=== PATIENT | male | born 1965 | race Caucasian/White ===

== ENCOUNTER 2023-03-09 16:45 | Outpatient (RCR) | payer BC, SELFPAY | END 2023-05-30 16:08 | disposition home or self-care (01) | PROVIDERS: PCP Student in an Organized Health Care Education/Training Program; Visit Provider Student in an Organized Health Care Education/Training Program | DX: S39.012A Strain of muscle, fascia and tendon of lower back, initial encounter (principal); M54.42 Lumbago with sciatica, left side; Z51.89 Encounter for other specified aftercare | CPT/HCPCS: 97012; 97110; 97161 ==

== ENCOUNTER 2025-05-23 20:54 | Emergency (ER) | payer BC, SELFPAY ==
--- OUTSIDE RECORDS SUMMARY | 2025-05-23 20:56 | XMS_ITS | Clinical Summary ---
Author Organization [facility] Address [address] [place] [id number] Care Team Providers Care Junior Php Developer Name Role Phone Isma Monge MD Primary Care Provider [phone] Allergies Active Allergy Reactions Criticality Noted Date Comments Venom-Honey Bee Edema 10/04/2016 Penicillins Rash 02/03/2016 Medications atorvastatin 40 mg tabletIndications: Hyperlipidemia, unspecified hyperlipidemia type Take 1 Tablet (40 mg) by mouth once daily. 90 Tablet 3 5 Active hydroCHLOROthiazid e 25 mg tabletIndications: HTN (hypertension) Take 1 Tablet (25 mg) by mouth once daily. 90 Tablet 3 5 Active losartan 100 mg tabletIndications: HTN (hypertension) Take 1 Tablet (100 mg) by mouth once daily. 90 Tablet 3 5 Active durable medical equipment (DME)Indications:C hronic heel pain, right,Gastrocnemiu s equinus, bilateral [id number] Plantar Fasciitis Night Splint, Large 1 Each 5 Active Active Problems Problem Noted Date Diagnosed Date Colon polyp 05/08/2019 Overview (05/08/2019): Colonoscopy 04/2019 polyp, repeat in 5 year, PEG 4-8L HTN (hypertension) 02/03/2016 Hyperlipidemia 02/03/2016 Gastroesophageal reflux disease without esophagi tis 02/03/2016 Encounters Date Type Department Care Team Description 03/20/2025 8:00 AM CDT Office Visit [facility] [address] [place] [address] Zach Alonso R, DPM Consult (Right Heel Pain) 03/19/2025 Travel from Last 3 Months Immunizations Immunization Administration Dates Next Due COVID-19 VACCINE SPIKEVAX (M ODERNA 50MCG/0.5ML) 12YO+ PFS 12/12/2023 COVID-19 vaccine (Pfizer-BioNTech 30mcg/0.3mL) P F, MDV 09/15/2021 Influenza, IIV4 10/11/2022 Td (Age >=7 Years) 07/08/2020 Tdap 10/24/2009 Zoster (Shingrix-RZV, recombinant) 06/04/2022, Family History Medical History Relation Name Comments Heart Disease Father Heart failure Father Hypertension Father Skin cancer Father Gallbladder disease Mother Hypertension Mother Diabetes Sister Relation Name Status Comments Father Mother Sister Social History Tobacco Use Types Packs/Day Years Used Date Smoking Tobacco: Never Smokeless Tobacco: Never Tobacco Cessation:Counseling Given: No Alcohol Use Standard Drinks/Week Comments Yes 2 (1 standard drink = 0.6 oz pur e alcohol) occasional PHQ-2 Answer Date Recorded PHQ-2 TOTAL SCORE 0 01/29/2025 Social Connections Answer Date Recorded Do you often feel lonely or isolated from those around you? 0 07/09/2024 Financial Resource Strain Answer Date R ecorded Difficulty of Paying Living Expenses 3 07/09/2024 Difficulty of Paying Living Expenses Not on file 07/09/2024 Food Insecurity Answer Date Recorded Do you worry your food will run out before you are able to buy more? 1 07/09/2024 Transportation Needs Answer Date Record ed Does lack of transportation keep you from medica l appointments? 1 07/09/2024 Does lack of transportation keep you from work, meetings or getting things that you need? 1 07/09/2024 Housing Stability Answer Date Recorded What is your housing situation today? 1 07/09/2024 Utilities Answer Date Recorded Do you have trouble paying f or utilities (for example, heat, electricity, water, phone)? 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 file Not on file Not on file Obstetrics History Last Filed Vital Signs Vital Sign Reading Time Taken Comments Blood Pressure 134/83 03/20/2025 7:57 AM CDT Pulse 72 03/20/2025 7:57 AM CDT Temperature 36.7 C (98 F) 07/08/2020 7:55 AM CDT Respiratory Rate - - Oxygen Saturation 98% 03/20/2025 7:57 AM CDT Inhaled Oxygen Concentration - - Weight 125.1 kg (275 lb 14.4 oz) 03/20/2025 7:57 AM CDT Height 190.1 cm (6' 2.84) 03/20/2025 7:57 AM CD T Body Mass Index 34.63 03/20/2025 7:57 AM CDT Plan of Treatment Health Maintenance Due Date Last Done Comments Pneumococcal series for age 50+ (1 of 1 - PCV) 2015 Colonoscopy through age 75 05/04/202405/04, 05/04/2019, 05/04/2019 COVID-19 vaccine series ( season) 2024 12/12/2023, 10/11/2022, 09/15/2021, Additional history exists RSV vaccine for adults or (1 - Risk 60-74 years 1-dose series) 2025 Influenza Vaccine (#1) 2025 10/11/2022 Depression screening for age 12+ 01/29/2026 01/29/2025, 12/12/2023, 09/15/2021, Additional history exists BMI (ht and wt on same day) for age 18+ 03/20/2026 03/20/2025, 01/29/2025, 12/12/2023, Additional history exists Lipids for age 45-75 01/29/2030 01/29/2025, 12/12/2023, 11/08/2022, Additional history exists Tetanus booster 07/08/2030 07/08/2020, 10/24/2009 Hepatitis C screening for age 18-79 Completed 03/09/2019 Zoster (shingles) series for age 50+ Completed 06/04/2022, 09/15/2021 HIV for age 15-65 Completed 11/08/2022 Hepatitis B series for 19+ Aged Out N o longer eligible based on patient's age to complete this topic Procedures Procedure Name Priority Date/Time Associated Diagnosis Comments LIPID PANEL Routine 01/29/2025 2:52 PM CDT Hyperlipidemia, unspecified hyperlipidemia type LC HIV-1/O/2, 4TH GENERATION Routine 11/08/2022 9:45 AM DIRECTOR OF EXHIBITS Screening for HIV (human immunodeficiency virus) COLONOSCOPY SCREENING Routine 05/04/2019 9:53 AM CDT Screen for colon cancer ANTI HCV Routine 03/09/2019 12:03 PM CDT Need for hepatitis C screening test from Last 3 Months or Most Recently Relevant to Health Maintenance Results * (ABNORMAL) LIPID PANEL (01/29/2025 2:52 PM CDT) CHOLESTEROL, TOTAL 133 <200 mg/dL [facility] HDL CHOLESTEROL 37(L) > OR = 40 mg/dL [facility] TRIGLYCERIDES 64 <150 mg/dL [facility] LDL-CHOLESTEROL 82 mg/dL (calc) [facility] Comment: Reference range: <100 Desirable range <100 mg/dL for primary prevention; <70 mg/dL for patients with CHD or diabetic patients with > or = 2 CHD risk factors. LDL-C is now calculated using the Jorge-Mackay calculation, which is a validated novel method providing better accuracy than the Friedewald equation in the estimation of LDL-C. Jorge SS et al. BALDEMAR. 2013;310(19): 1485-2680 (http://education.Sentiment.Capsule.fm/faq/NYI870) CHOL/HDLC RATIO 3.6 <5.0 (calc) [facility] NON HDL CHOLESTEROL 96 <130 mg/dL (calc) [facility] Comment: For patients with diabetes plus 1 major ASCVD risk factor, treating to a non-HDL-C goal of <100 mg/dL (LDL-C of <70 mg/dL) is considered a therapeutic option. Blood BLOOD SPECIMEN / Unknown 01/29/2025 2:52 PM CDT 01/29/2025 2:52 PM CDT Isma Monge MD CHEMISTRY Final Resu lt [facility] [address] [place] [address], [place] [phone] [facility] [address] [place] [address] * LC HIV-1/O/2, 4TH GENERATION (11/08/2022 9:45 AM DIRECTOR OF EXHIBITS) Pathologist [facility] HIV Scr 4th Gen Non Reactive Non Reactive 11/10/2022 7:35 AM DIRECTOR OF EXHIBITS [facility] ([facility]) Comment: HIV Negative HIV-1/HIV-2 antibodies and HIV-1 p24 antigen were NOT detected. There is no laboratory evidence of HIV infection. Blood BLOOD SPECIMEN / Unknown Venipuncture / Unknown 11/08/2022 9:45 AM DIRECTOR OF EXHIBITS 11/08/2022 9:45 AM DIRECTOR OF EXHIBITS Narrative FOR [facility] ([facility]) - 11/10/2022 7:35 AM DIRECTOR OF EXHIBITS Performed at: [address] [place] [address] [id number] Community Service Technician: Wilmer Godwin MD, Phone: [phone] Isma Monge MD LABORATORY Final Resu lt [facility] ([facility]) [address] [place] [address] * COLONOSCOPY SCREENING (05/04/2019 9:53 AM CDT) Isma Monge MD GI PROCEDURE ORD Final Res ult * ANTI HCV [50316.2] (03/09/2019 12:03 PM CDT) HEPATITIS C ANTIBODY Non-React jairo Non-React jairo 03/09/2019 5:20 PM CDT [facility] Comment:Antibodies to HCV no t detected; does not exclude the possibility of exposure to HCV. Blood BLOOD SPECIMEN / Unknown Venipuncture / Unknown 03/09/2019 12:03 PM CDT 03/09/2019 12:06 PM CDT Isma Monge MD SEND OUTS Final Resu lt [facility] [address] [place] [address], [place] from Last 3 Months or Most Recently Relevant to Health Maintenance Insurance [facility] NON-PA-ITS Care Teams Junior Php Developer Relationship Specialty Start Date End Date Isma Monge MD [address] [place] [address] PCP - General Family Practice 04/21/20
--- OUTSIDE RECORDS SUMMARY | 2025-05-23 20:56 | XMS_ITS | Clinical Summary ---
Author Organization [facility] Address [address] [place] [address] Care Team Providers Care Annealing Torch Operator Name Role Phone Unassigned, Provider Primary Care Provider Unava ilable Source Comments You are receiving this document as you are listed as the primary care provider,follow-up provider, or the patient has been referred to you for consultation.This is in compliance with the Medicare and[facility] EHR Incentive Program,which states Providers who transition their patient to another setting of careor provider of care or refers their patient to another provider of care shouldprovide summary care record for each transition of care or referral. 640 Labs Allergies Active Allergy Reactions Criticality Noted Date Comments Bee Venom Other, see comments 02/04/2022 Penicillins Rash 02/04/2022 Medications atorvastatin (LIPITOR) 40 MG tablet Take 40 mg by mouth daily at bedtime. 12/12/2021 Active hydroCHLOROthiaz timothy (ORETIC) 25 MG tablet Take 25 mg by mouth daily. 12/11/2021 Active losartan (COZAAR) 100 MG tablet Take 100 mg by mouth daily. 12/18/2021 Active omeprazole (PRILOSEC) 20 MG capsule Active Social History Tobacco Use Types Packs/Day Years Used Date Smoking Tobacco: Never Assessed Sex and Gender Information Value Date Recorded Sex Assigned at Not on file Legal Sex Male 3:52 AM CDT Gender Identity Not on file Sexual Orientation Not on file Plan of Treatment Health Maintenance Due Date Last Done Comments Colon Cancer Screening Plan Due 1965 Hep C Screening (Preventive Services) 1965 PSA Screening Discussion 1965 HIV Screening (Preventive Services) 1981 Adult Preventive Visit 1983 Cholesterol 2000 Pneumococcal Vaccine 50+ Yrs (1 of 1 - PCV) 2015 Zoster/Shingles Vaccine (2 o f 2) 11/10/2021 09/15/2021 COVID-19 Vaccine (4 - 2023-2 5 season) 2024 09/15/2021, 02/28/2021, 02/07/2021 Influenza Vaccine (#1) 2025 DTaP/Tdap/Td Vaccine (3 - Tdap) 07/08/2030 07/08/2020, 10/24/2009 RSV Vaccine (1 - 1-dose 75+ series) 2040 HepA Vaccine Aged Out No longer eligi ble based on patient's age to complete this topic HepB Vaccine Aged Out No longer eligi ble based on patient's age to complete this topic Hib Vaccine Aged Out No longer eligi ble based on patient's age to complete this topic IPV (Polio) Vaccine Aged Out No longe r eligible based on patient's age to complete this topic MCV4 Vaccine Aged Out No longer eligi ble based on patient's age to complete this topic Meningococcal B Vaccine Aged Out No l onger eligible based on patient's age to complete this topic Insurance BCBS OUT OF STATE [id number] [place] [id number] Care Teams Annealing Torch Operator Relationship Specialty Start Date End Date Unassigned, Provider [address] [place] [address] PCP - General 12/24/00
[2025-05-23 21:03] VITALS: BP 149/105; PULSE 99; RESP 20; TEMP 36.8; O2SAT 99; BMI 32.5
--- NOTE | 2025-05-23 21:13 | CRLHL7_ITS ---
For Patients: As a result of the Century Cures Act, medical imaging exams and procedure reports are released immediately into your electronic medical record. You may view this report before your referring provider. If you have questions, please contact your health care provider. INDICATION: Right upper quadrant and gastric abdominal pain. TECHNIQUE: CT abdomen and pelvis acquired with 128 cc Isovue 370 IV contrast. COMPARISON: None. FINDINGS: Lower chest: Mild subsegmental atelectasis. Liver: Mild periportal edema, possibly related to patient hydration status. Normal in size and attenuation. No suspicious masses. Gallbladder and bile ducts: Cholelithiasis, but no definite gallbladder inflammatory changes. No biliary dilatation. Pancreas: Unremarkable. No mass or inflammation. Spleen: Splenules. Normal in size. No masses. Adrenal glands: Unremarkable. No nodules. Kidneys: Left renal cyst. No suspicious masses, stones, or hydronephrosis. GI tract: Unremarkable. Normal in caliber. No sign of mass or inflammation. No secondary signs of appendicitis. Vasculature: Mild atherosclerotic calcifications. Abdominal aorta is normal in caliber. Mesenteric arteries are patent. Lymph nodes: No pathologic lymphadenopathy. Peritoneum/Abdominal Wall: Unremarkable. No sign of mass or infiltration. No free air or significant free fluid. Pelvis: Bladder is unremarkable. Prostate is unremarkable. Bones: No acute lesions. Left-sided L5 pars defect. IMPRESSION: No acute findings to explain the patient`s symptoms. Cholelithiasis, but no definite gallbladder inflammatory changes. Please note that all CT scans at this facility use dose modulation, iterative reconstruction, and/or weight-based dosing when appropriate to reduce radiation dose to as low as reasonably achievable. Dictated by Darrin Kendall MD @ 05/23/2025 11:45:00 PM (Electronically Signed)
--- NOTE | 2025-05-23 21:13 | ED.ABDPAIN ---
HPI - Abdominal Pain General Date Seen: 05/23/25 <Aretha Humphrey MD - Last Filed: 05/23/25 22:09> Chief Complaint: Abdominal Pain <Aretha Humphrey MD - Last Filed: 05/23/25 22:09> Stated Complaint: Gallbladder issues <Aretha Humphrey MD - Last Filed: 05/23/25 22:09> Time Seen by Provider: 05/23/25 21:00 <Aretha Humphrye MD - Last Filed: 05/23/25 22:09> Source: patient, family and RN notes reviewed <Aretha Humphrey MD - Last Filed: 05/23/25 22:09> Mode of arrival: ambulatory <Aretha Humphrey MD - Last Filed: 05/23/25 22:09> Limitations: no limitations <Aretha Humphrey MD - Last Filed: 05/23/25 22:09> History of Present Illness HPI narrative: Ranjit is a very pleasant 60-year-old male with a history of hypertension, hyperlipidemia as well as known gallbladder issues diagnosed in 2020 who comes to the emergency room with increasing abdominal pain this evening. Ranjit notes that he diagnosed with gallbladder issues in 2020 but decided to handle it with change in his diet. He does tell the nursing staff he has noticed some discomfort over the last 2 weeks tonight he had pain develop prior to working out but after working out and eating it is much worse. He shows this to be in the gastric area. He is not had any vomiting. He has not had any diarrhea or constipation. Does not think that he is bloated her feels that his belly is bigger than it should be. He also has a past history of an appendectomy. No fever or chills. He is rating the pain a 9/10. He is preferring to stay still has a seems to be worse with movement. He has not taken anything for pain. <Aretha Humphrey MD - Last Filed: 05/23/25 22:09> Related Data Home Medications: Home Medications ?Medication ?Instructions ?Recorded ?Confirmed atorvastatin 40 mg tablet 40 mg PO DAILY 05/23/25 05/23/25 hydrochlorothiazide 25 mg tablet 25 mg PO DAILY 05/23/25 05/23/25 losartan 100 mg tablet 100 mg PO DAILY 05/23/25 05/23/25 <Aretha Humphrey MD - Last Filed: 05/23/25 22:09> Allergies/Adverse Reactions: Allergies Allergy/AdvReac Type Severity Reaction Status Date / Time Penicillins Allergy Verified 05/23/25 22:49 <Aretha Humphrey MD - Last Filed: 05/23/25 22:09> Review of Systems Status of ROS Reports: 10 or more systems reviewed and unremarkable except as noted in History and below <Aretha Humphrey MD - Last Filed: 05/23/25 22:09> Const Denies: fever, chills or fatigue <Aretha Humphrey MD - Last Filed: 05/23/25 22:09> ENMT Denies: nasal congestion <Aretha Humphrey MD - Last Filed: 05/23/25 22:09> Cardio Denies: chest pain, swelling of feet/ankles or shortness of breath with exertion <Aretha Humphrey MD - Last Filed: 05/23/25 22:09> Resp Denies: shortness of breath or cough <Aretha Humphrey MD - Last Filed: 05/23/25 22:09> GI Reports: abdominal pain and nausea; Denies: vomiting, diarrhea or constipation <Aretha Humphrey MD - Last Filed: 05/23/25 22:09> Denies: painful urination <Aretha Humphrey MD - Last Filed: 05/23/25 22:09> Endo Denies: fatigue <Aretha Humphrey MD - Last Filed: 05/23/25 22:09> [facility] Social History: Social History Smoking Status: Never smoker Do you use any of these nicotine containing products: None Second hand tobacco smoke exposure: No How often do you have a drink containing alcohol: monthly or less How often do you have six or more drinks on one occasion: Never AUDIT-C Alcohol total score: 1 Non-prescribed substance use: denies use service: No <Aretha Humphrey MD - Last Filed: 05/23/25 22:09> Exam Narrative: Exam Narrative: Patient is alert and oriented and nontoxic in appearance. He is however in discomfort. External ears eyes nose clear. Heart with regular rate and rhythm and lungs are clear. Abdomen shows tenderness in the epigastrium and right upper quadrant positive Womack sign. No significant tenderness in the lower aspect of the abdomen. Bowel sounds are present. Lower extremities without edema. He is diaphoretic. No pulsating mass. <Aretha Humphrey MD - Last Filed: 05/23/25 22:09> Const: Vital Signs, click to edit/add: Vital Signs - 24 hr 05/23/25 21:03 05/23/25 22:56 05/23/25 23:45 Temperature 98.3 F 97.5 F L Pulse Rate [Pulse Oximeter] 99 62 61 Respiratory Rate 20 16 16 Blood Pressure [Le ft Upper Arm] 149/105 H 130/70 129/68 Pulse Oximetry 99 98 100 Oxygen Delivery Me thod Room Air Room Air Room Air <Aretha Humphrey MD - Last Filed: 05/23/25 22:09> Vital Signs, click to edit/add: Vital Signs - 24 hr 05/23/25 21:03 05/23/25 22:56 05/23/25 23:45 Temperature 98.3 F 97.5 F L Pulse Rate [Pulse Oximeter] 99 62 61 Respiratory Rate 20 16 16 Blood Pressure [Le ft Upper Arm] 149/105 H 130/70 129/68 Pulse Oximetry 99 98 100 Oxygen Delivery Me thod Room Air Room Air Room Air <Maura Koroma MD - Last Filed: 05/23/25 23:55> Documenting provider has reviewed patient's vital signs: yes <Aretha Humphrey MD - Last Filed: 05/23/25 22:09> Course Course ED Course: Differential diagnosis includes but is not limited to biliary colic, small-bowel obstruction, internal hernia, aortic dissection. At this time patient will have IV placed, Toradol 15 mg IV morphine 4 mg IV Zofran 4 mg IV and 1 L normal saline given. Have asked for a CT of the abdomen and pelvis with IV contrast. Have ordered CBC, comprehensive panel, urinalysis, lactate, lipase, CRP. <Aretha Humphrey MD - Last Filed: 05/23/25 22:09> Differential diagnosis includes but is not limited to biliary colic, small-bowel obstruction, internal hernia, aortic dissection. At this time patient will have IV placed, Toradol 15 mg IV morphine 4 mg IV Zofran 4 mg IV and 1 L normal saline given. Have asked for a CT of the abdomen and pelvis with IV contrast. Have ordered CBC, comprehensive panel, urinalysis, lactate, lipase, CRP. <Maura Koroma MD - Last Filed: 05/23/25 23:55> Reevaluation(s) Reevaluation #1: Patient noted to have a mildly elevated white count, lactate 2.1. Currently awaiting urinalysis and comprehensive panel. <Aretha Humphrey MD - Last Filed: 05/23/25 22:09> Reevaluation #2: The rest of his blood work was unremarkable. He was feeling much better after treatment. His abdominal CT scan showed cholelithiasis, no evidence of gallbladder inflammation. We discussed discharge home with follow-up in the surgical clinic. Patient was in agreement with this. We discussed returning to the ER if he develops fever, vomiting or pain that cannot be tolerated or controlled. <Maura Koroma MD - Last Filed: 05/23/25 23:55> Vital Signs Vital signs: Initial Vital Signs Temperature 98.3 F 05/23/25 21:03 Temperature Source Temporal Artery Scan 05/23/25 21:03 Pulse Rate 99 05/23/25 21:03 Pulse Rhythm Regular 05/23/25 21:03 Respiratory Rate 20 05/23/25 21:03 Blood Pressure 149/105 H 05/23/25 21:03 Blood Pressure Mean 119 H 05/23/25 21:03 Blood Pressure Position Supine 05/23/25 21:03 Pulse Oximetry 99 05/23/25 21:03 Oxygen Delivery Method Room Air 05/23/25 21:03 Vital Signs Temperature 98.3 F 05/23/25 21:03 Pulse Rate 99 05/23/25 21:03 Respiratory Rate 20 05/23/25 21:03 Blood Pressure 149/105 H 05/23/25 21:03 Pulse Oximetry 99 05/23/25 21:03 Oxygen Delivery Method Room Air 05/23/25 21:03 Temperature 97.5 F L 05/23/25 22:56 Pulse Rate 61 05/23/25 23:45 Respiratory Rate 16 05/23/25 23:45 Blood Pressure 129/68 05/23/25 23:45 Pulse Oximetry 100 05/23/25 23:45 Oxygen Delivery Method Room Air 05/23/25 23:45 <Aretha Humphrey MD - Last Filed: 05/23/25 22:09> Initial Vital Signs Temperature 98.3 F 05/23/25 21:03 Temperature Source Temporal Artery Scan 05/23/25 21:03 Pulse Rate 99 05/23/25 21:03 Pulse Rhythm Regular 05/23/25 21:03 Respiratory Rate 20 05/23/25 21:03 Blood Pressure 149/105 H 05/23/25 21:03 Blood Pressure Mean 119 H 05/23/25 21:03 Blood Pressure Position Supine 05/23/25 21:03 Pulse Oximetry 99 05/23/25 21:03 Oxygen Delivery Method Room Air 05/23/25 21:03 Vital Signs Temperature 98.3 F 05/23/25 21:03 Pulse Rate 99 05/23/25 21:03 Respiratory Rate 20 05/23/25 21:03 Blood Pressure 149/105 H 05/23/25 21:03 Pulse Oximetry 99 05/23/25 21:03 Oxygen Delivery Method Room Air 05/23/25 21:03 Temperature 97.5 F L 05/23/25 22:56 Pulse Rate 61 05/23/25 23:45 Respiratory Rate 16 05/23/25 23:45 Blood Pressure 129/68 05/23/25 23:45 Pulse Oximetry 100 05/23/25 23:45 Oxygen Delivery Method Room Air 05/23/25 23:45 <Maura Koroma MD - Last Filed: 05/23/25 23:55> Medications Administered Medications: Discontinued Medications Generic Name Dose Route Start Last Admin Trade Name Adis PRN Reason Stop Dose Admin Sodium Chloride 1,000 mls @ 1,000 mls/hr 05/23/25 21:14 05/23/25 22:34 0.9 % Sodium Chloride 1000 Ml IV 05/23/25 22:13 Infused .Q1H PIA Infusion Ketorolac Tromethamine 15 mg 05/23/25 21:13 05/23/25 21:21 Ketorolac 15 Mg/Ml Inj IVP 05/23/25 21:14 15 mg ONCE ONE Administration Morphine Sulfate 4 mg 05/23/25 21:13 05/23/25 21:21 Morphine 4 Mg/Ml Inj IVP 05/23/25 21:14 4 mg ONCE ONE Administration Ondansetron HCl 4 mg 05/23/25 21:13 05/23/25 21:20 Ondansetron 2 Mg/Ml Inj IVP 05/23/25 21:14 4 mg ONCE ONE Administration <Aretha Humphrey MD - Last Filed: 05/23/25 22:09> Discontinued Medications Generic Name Dose Route Start Last Admin Trade Name Adis PRN Reason Stop Dose Admin Sodium Chloride 1,000 mls @ 1,000 mls/hr 05/23/25 21:14 05/23/25 22:34 0.9 % Sodium Chloride 1000 Ml IV 05/23/25 22:13 Infused .Q1H PIA Infusion Ketorolac Tromethamine 15 mg 05/23/25 21:13 05/23/25 21:21 Ketorolac 15 Mg/Ml Inj IVP 05/23/25 21:14 15 mg ONCE ONE Administration Morphine Sulfate 4 mg 05/23/25 21:13 05/23/25 21:21 Morphine 4 Mg/Ml Inj IVP 05/23/25 21:14 4 mg ONCE ONE Administration Ondansetron HCl 4 mg 05/23/25 21:13 05/23/25 21:20 Ondansetron 2 Mg/Ml Inj IVP 05/23/25 21:14 4 mg ONCE ONE Administration <Maura Koroma MD - Last Filed: 05/23/25 23:55> MDM - Abdominal Pain MDM Narrative Medical decision making narrative: 1. Abdominal pain-suspect biliary colic. Currently awaiting creatinine so that they were able to proceed with CT. 2. Disposition -as patient was signed out to my partner Dr. Koroma for review of laboratory values and CT results <Aretha Humphrey MD - Last Filed: 05/23/25 22:09> Lab Data Attestation: I reviewed the patient's lab results. <Aretha Humphrey MD - Last Filed: 05/23/25 22:09> Labs: Lab Results 05/23/25 Range/Units 21:10 WBC 13.63 H (4.50-11.00) K/uL RBC 4.38 (4.30-5.90) m/uL Hgb 13.0 L (13.5-17.5) gm/dL Hct 39.5 (37.0-53.0) % MCV 90 (80-100) fL MCH 30 (26-34) pg MCHC 33 (32-36) gm/dL RDW Coeff of Stevan 13.3 (11.5-15.5) % Plt Count 318 (140-440) K/uL Neut % (Auto) 53.2 (42.0-72.0) % Lymph % (Auto) 35.8 (20-44) % [place] % (Auto) 8.3 (0.0-11.0) % Eos % (Auto) 2.1 (0.0-7.0) % Baso % (Auto) 0.4 (0.0-3.0) % Neut # (Auto) 7.30 H (1.7-7.0) K/uL Lymph # (Auto) 4.90 H (0.90-2.90) K/uL [place] # (Auto) 1.10 H (0.00-0.90) K/UL Eos # (Auto) 0.30 (0.00-0.50) K/uL Baso # (Auto) 0.10 (0.00-0.30) K/uL Abs Immat Gran (auto) 0.00 (0.00-0.30) K/uL Imm/Tot Granulo (auto) 0.2 % Sodium 137 (135-149) mmol/L Potassium 3.7 (3.6-5.1) mmol/L Chloride 103 (96-114) mmol/L Carbon Dioxide 27 (20-32) mmol/L Anion Gap 7 (7-15) mEq/L BUN 29 (7-30) mg/dL Creatinine 1.0 (0.5-1.5) mg/dL Estimated Creat Clear 93.89 Estimated GFR 86 ml/min Glucose 103 (60-115) mg/dL Lactate 2.1 H (0.5-1.9) mmol/L Calcium 9.8 (8.4-10.6) mg/dL Total Bilirubin 0.6 (0.1-1.5) mg/dL AST 30 (12-35) U/L ALT 22 (4-50) U/L Alkaline Phosphatase 78 (40-150) U/L C-Reactive Protein 0.9 (0.5-1.0) mg/dL Total Protein 8.0 (6.0-8.3) g/dL Albumin 4.5 (3.3-5.0) g/dL Lipase 89 (23-300) U/L Urine Color Yellow (Yellow) Urine Appearance Clear (Clear) Urine pH 8.5 (5.0-8.5) Ur Specific Igo 1.015 (1.000-1.030) Urine Protein Negative (Negative) Urine Glucose (UA) Negative (Negative) Urine Ketones Negative (Negative) Urine Blood Negative (Negative) Urine Nitrite Negative (Negative) Urine Bilirubin Negative (Negative) Urine Urobilinogen 0.2 (0.2-1.0) Ur Leukocyte Esterase Negative (Negative) Urine RBC 0-2 (0-2) Urine WBC 0-2 (0-5) Ur Squamous Epith Cells Few (None-Few) Urine Bacteria Few A (None) <Aretha Humphrey MD - Last Filed: 05/23/25 22:09> Lab Results 05/23/25 Range/Units 21:10 WBC 13.63 H (4.50-11.00) K/uL RBC 4.38 (4.30-5.90) m/uL Hgb 13.0 L (13.5-17.5) gm/dL Hct 39.5 (37.0-53.0) % MCV 90 (80-100) fL MCH 30 (26-34) pg MCHC 33 (32-36) gm/dL RDW Coeff of Stevan 13.3 (11.5-15.5) % Plt Count 318 (140-440) K/uL Neut % (Auto) 53.2 (42.0-72.0) % Lymph % (Auto) 35.8 (20-44) % [place] % (Auto) 8.3 (0.0-11.0) % Eos % (Auto) 2.1 (0.0-7.0) % Baso % (Auto) 0.4 (0.0-3.0) % Neut # (Auto) 7.30 H (1.7-7.0) K/uL Lymph # (Auto) 4.90 H (0.90-2.90) K/uL [place] # (Auto) 1.10 H (0.00-0.90) K/UL Eos # (Auto) 0.30 (0.00-0.50) K/uL Baso # (Auto) 0.10 (0.00-0.30) K/uL Abs Immat Gran (auto) 0.00 (0.00-0.30) K/uL Imm/Tot Granulo (auto) 0.2 % Sodium 137 (135-149) mmol/L Potassium 3.7 (3.6-5.1) mmol/L Chloride 103 (96-114) mmol/L Carbon Dioxide 27 (20-32) mmol/L Anion Gap 7 (7-15) mEq/L BUN 29 (7-30) mg/dL Creatinine 1.0 (0.5-1.5) mg/dL Estimated Creat Clear 93.89 Estimated GFR 86 ml/min Glucose 103 (60-115) mg/dL Lactate 2.1 H (0.5-1.9) mmol/L Calcium 9.8 (8.4-10.6) mg/dL Total Bilirubin 0.6 (0.1-1.5) mg/dL AST 30 (12-35) U/L ALT 22 (4-50) U/L Alkaline Phosphatase 78 (40-150) U/L C-Reactive Protein 0.9 (0.5-1.0) mg/dL Total Protein 8.0 (6.0-8.3) g/dL Albumin 4.5 (3.3-5.0) g/dL Lipase 89 (23-300) U/L Urine Color Yellow (Yellow) Urine Appearance Clear (Clear) Urine pH 8.5 (5.0-8.5) Ur Specific Igo 1.015 (1.000-1.030) Urine Protein Negative (Negative) Urine Glucose (UA) Negative (Negative) Urine Ketones Negative (Negative) Urine Blood Negative (Negative) Urine Nitrite Negative (Negative) Urine Bilirubin Negative (Negative) Urine Urobilinogen 0.2 (0.2-1.0) Ur Leukocyte Esterase Negative (Negative) Urine RBC 0-2 (0-2) Urine WBC 0-2 (0-5) Ur Squamous Epith Cells Few (None-Few) Urine Bacteria Few A (None) <Maura Koroma MD - Last Filed: 05/23/25 23:55> Imaging Data CT scan - abdomen: Attestation: I have reviewed the pertinent imaging results. <Aretha Humphrey MD - Last Filed: 05/23/25 22:09> Radiologist's impression: TECHNIQUE: CT abdomen and pelvis acquired with 128 cc Isovue 370 IV contrast. COMPARISON: None. FINDINGS: Lower chest: Mild subsegmental atelectasis. Liver: Mild periportal edema, possibly related to patient hydration status. Normal in size and attenuation. No suspicious masses. Gallbladder and bile ducts: Cholelithiasis, but no definite gallbladder inflammatory changes. No biliary dilatation. Pancreas: Unremarkable. No mass or inflammation. Spleen: Splenules. Normal in size. No masses. Adrenal glands: Unremarkable. No nodules. Kidneys: Left renal cyst. No suspicious masses, stones, or hydronephrosis. GI tract: Unremarkable. Normal in caliber. No sign of mass or inflammation. No secondary signs of appendicitis. Vasculature: Mild atherosclerotic calcifications. Abdominal aorta is normal in caliber. Mesenteric arteries are patent. Lymph nodes: No pathologic lymphadenopathy. Peritoneum/Abdominal Wall: Unremarkable. No sign of mass or infiltration. No free air or significant free fluid. Pelvis: Bladder is unremarkable. Prostate is unremarkable. Bones: No acute lesions. Left-sided L5 pars defect. IMPRESSION: No acute findings to explain the patient`s symptoms. Cholelithiasis, but no definite gallbladder inflammatory changes. <Maura Koroma MD - Last Filed: 05/23/25 23:55> Discharge Plan Discharge Clinical Impression: Cholelithiasis <Aretha Humphrey MD - Last Filed: 05/23/25 22:09> Patient Disposition: Home, Self-Care <Aretha Humphrey MD - Last Filed: 05/23/25 22:09> Condition: Stable <Aretha Humphrey MD - Last Filed: 05/23/25 22:09> Additional Instructions: You will be provided with the phone number to the surgical clinic. Recommend you call them 1st thing in the morning and request an ER follow-up visit for gallstones. In the meantime he will be sent home with both Toradol (stronger anti-inflammatory) and hydrocodone-acetaminophen. Hydrocodone-acetaminophen is in narcotic pain medication-this may cause constipation. Recommend daily MiraLax if you are taking this medication regularly for more than 2 days. This medication can also cause dizziness, do not operate any heavy machinery few taking his medication. Do not take acetaminophen/Tylenol in addition to this medication. <Aretha Humphrey MD - Last Filed: 05/23/25 22:09> Prescriptions: No Action atorvastatin 40 mg tablet 40 mg PO DAILY hydrochlorothiazide 25 mg tablet 25 mg PO DAILY losartan 100 mg tablet 100 mg PO DAILY <Aretha Humphrey MD - Last Filed: 05/23/25 22:09> Follow Up/Referrals: SUSY MCNEAL DO [Referring, Family Practice] <Aretha Humphrey MD - Last Filed: 05/23/25 22:09> Stand Alone Forms: MyHealth Info Instructions <Aretha Humphrey MD - Last Filed: 05/23/25 22:09>
[2025-05-23] MEDS: ONDANSETRON 2 MG/ML inj 4 MG IVP (21:20)
[2025-05-23] MEDS: MORPHINE 4 MG/ML INJ IVP (21:21)
[2025-05-23 21:43] LABS: Lactate* 2.1 mmol/L (0.5-1.9)
[2025-05-23 21:46] LABS: Hematocrit 39.5 % (37.0-53.0); Hemoglobin* 13.0 gm/dL (13.5-17.5); Immature Granulocytes Pct Auto 0.2 %; Mean Corpuscular HGB Conc 33 gm/dL (32-36); Mean Corpuscular Hemoglobin 30 pg (26-34); Mean Corpuscular Volume 90 fL (80-100); RDW Coefficient of Variation % 13.3 % (11.5-15.5); Red Blood Count 4.38 m/uL (4.30-5.90); White Blood Count* 13.63 K/uL (4.50-11.00)
[2025-05-23 21:52] LABS: Immature Granulocytes Abs Auto 0.00 K/uL (0.00-0.30); Lymphocytes Absolute Auto 4.90 K/uL (0.90-2.90); Slide Review Reflex No
[2025-05-23 21:59] LABS: Albumin* 4.5 g/dL (3.3-5.0); Chloride* 103 mmol/L (96-114); Sodium* 137 mmol/L (135-149)
[2025-05-23 22:00] LABS: Potassium* 3.7 mmol/L (3.6-5.1)
[2025-05-23 22:02] LABS: Alanine Aminotransferase* 22 U/L (4-50); Aspartate Amino Transferase* 30 U/L (12-35); Blood Urea Nitrogen* 29 mg/dL (7-30); Creatinine* 1.0 mg/dL (0.5-1.5); Est. Creatinine Clearance* 93.89; Estimated Glomerular Filt Rate 86 ml/min
[2025-05-23 22:03] LABS: Alkaline Phosphatase* 78 U/L (40-150); Anion Gap 7 mEq/L (7-15); Bilirubin Total* 0.6 mg/dL (0.1-1.5); Calcium* 9.8 mg/dL (8.4-10.6); Carbon Dioxide* 27 mmol/L (20-32); Glucose* 103 mg/dL (60-115); Total Protein* 8.0 g/dL (6.0-8.3)
[2025-05-23 22:56] VITALS: BP 130/70; PULSE 62; RESP 16; TEMP 36.4; O2SAT 98
[2025-05-23 23:20] LABS: Appearance Urine Clear (Clear)
[2025-05-23 23:45] VITALS: BP 129/68; PULSE 61; RESP 16; O2SAT 100
== END 2025-05-24 00:07 | disposition home or self-care (01) ==
PROVIDERS: Emergency Provider Family Medicine; PCP Surgery
DX: K80.20 Calculus of gallbladder without cholecystitis without obstruction (principal)
CPT/HCPCS: 36415; 74177; 80053; 81001; 83605; 83690; 85025; 86140; 87086; 96374; 96375; 99284; J1885; J2270; J2405; J7030; Q9967

== ENCOUNTER 2025-05-24 09:49 | Outpatient (CLI) | payer BC, SELFPAY ==
--- NOTE | 2025-05-24 10:00 | CRLHL7_ITS ---
For Patients: As a result of the Century Cures Act, medical imaging exams and procedure reports are released immediately into your electronic medical record. You may view this report before your referring provider. If you have questions, please contact your health care provider. INDICATION: RUQ PAIN, CHOLELITHIASIS COMPARISON: CT 05/23/2025 TECHNIQUE: Real time singh scale imaging and color Doppler analysis was performed of the gallbladder. FINDINGS: Echogenic stones within the gallbladder neck. Gallbladder wall is thickened measuring 7 millimeters. No pericholecystic fluid. Common bile duct measures 6 millimeters. Positive sonographic Womack`s sign. IMPRESSION: Gallstones in the gallbladder neck with positive sonographic Womack`s sign and gallbladder wall thickening suggesting cholecystitis. Surgical consultation recommended. Dictated by Darrin Murguia MD @ 05/24/2025 11:02:11 AM (Electronically Signed)
== END 2025-05-24 09:50 | disposition home or self-care (01) ==
LOC: US 09:49
PROVIDERS: PCP Surgery; Visit Provider Family Medicine
DX: R10.11 Right upper quadrant pain (principal); K80.20 Calculus of gallbladder without cholecystitis without obstruction
CPT/HCPCS: 76705

== ENCOUNTER 2025-05-27 01:34 | Day surgery (SDC) | payer BC, SELFPAY ==
[2025-05-27] VITALS (19 sets, daily range): BP systolic 110–146; BP diastolic 62–84; PULSE 45–63; RESP 10–18; TEMP 36.4–37.1; O2SAT 93–100; BMI 32.5
--- OUTSIDE RECORDS SUMMARY | 2025-05-27 01:35 | XMS_ITS | Clinical Summary ---
Author Organization [employer] [facility] [employer] [facility] Address [address] [place] [id number] Care Team Providers Care Tip Banding Machine Operator Name Role Phone Isma Monge MD Primary Care Provider [phone] Allergies Active Allergy Reactions Criticality Noted Date [...] hronic heel pain, right,Gastrocnemiu s equinus, bilateral [id number] Plantar Fasciitis Night Splint, Large 1 Each 5 Active Active Problems Problem Noted Date Diagnosed Date Colon polyp 05/08/2019 Overview (05/08/2019): Colonoscopy 04/2019 polyp, repeat in 5 year, PEG 4-8L HTN (hypertension) 02/03/2016 Hyperlipidemia 02/03/2016 Gastroesophageal reflux disease without esophagi tis 02/03/2016 Encounters Date Type Department Care Team Description 05/24/2025 Orders Only [facility] Scanner 1 scan: (1-Ord) [place], GALLBLADDER, 05/24/2025 05/23/2025 Orders Only [facility] Scanner 1 scan: (1-Ord) 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 Not on file Not [...] Procedure Name Priority Date/Time Associated Diagnosis Comments SCAN-ULTRASOUND REPORT 05/24/2025 12:00 AM CDT SCAN-CT INTERPRETATION 05/23/2025 12:00 AM CDT LIPID PANEL Routine 01/29/2025 2:52 PM CDT Hyperlipidemia, unspecified hyperlipidemia type LC HIV-1/O/2, 4TH GENERATION Routine 11/08/2022 9:45 AM PERSONAL VEHICLE ADVISOR Screening for HIV (human immunodeficiency virus) COLONOSCOPY SCREENING Routine 05/04/2019 9:53 AM CDT Screen for colon cancer ANTI HCV Routine 03/09/2019 12:03 PM CDT Need for hepatitis C screening test from Last 3 Months or Most Recently Relevant to Health Maintenance Results * SCAN-ULTRASOUND REPORT (05/24/2025 12:00 AM CDT) Anatomical Region Laterality Modality Other us Scanner OTHER Final Result * SCAN-CT INTERPRETATION (05/23/2025 12:00 AM CDT) Anatomical Region Laterality Modality Other us Scanner OTHER Final Result * (ABNORMAL) LIPID PANEL (01/29/2025 2:52 PM CDT) CHOLESTEROL, TOTAL 133 <200 mg/dL [facility] HDL CHOLESTEROL 37(L) > OR = 40 mg/dL [facility] TRIGLYCERIDES 64 <150 mg/dL [facility] LDL-CHOLESTEROL 82 mg/dL (calc) [facility] Comment: Reference range: <100 Desirable range <100 mg/dL for primary prevention; <70 mg/dL for patients with CHD or diabetic patients with > or = 2 CHD risk factors. LDL-C is now calculated using the Adan calculation, which is a validated novel method providing better accuracy than the Friedewald equation in the estimation of LDL-C. Jorge SANCHEZ et al. BALDEMAR. 2013;310(19): 2261-4454 (http://education.makeena/faq/NQR036) CHOL/HDLC RATIO 3.6 <5.0 (calc) [facility] NON HDL CHOLESTEROL 96 <130 mg/dL (calc) [facility] Comment: For patients with diabetes plus 1 major ASCVD risk factor, treating to a non-HDL-C goal of <100 mg/dL (LDL-C of <70 mg/dL) is considered a therapeutic option. Blood BLOOD SPECIMEN / Unknown 01/29/2025 2:52 PM CDT 01/29/2025 2:52 PM CDT Isma Monge MD CHEMISTRY Final Resu lt [facility] [address] [place] [address], [address] [address] * LC HIV-1/O/2, 4TH GENERATION (11/08/2022 9:45 AM PERSONAL VEHICLE ADVISOR) [facility] HIV Scr 4th Gen Non Reactive Non Reactive 11/10/2022 7:35 AM PERSONAL VEHICLE ADVISOR [facility] Comment: HIV Negative HIV-1/HIV-2 antibodies and HIV-1 p24 antigen were NOT detected. There is no laboratory evidence of HIV infection. Blood BLOOD SPECIMEN / Unknown Venipuncture / Unknown 11/08/2022 9:45 AM PERSONAL VEHICLE ADVISOR 11/08/2022 9:45 AM PERSONAL VEHICLE ADVISOR Narrative [facility] ([facility]) - 11/10/2022 7:35 AM PERSONAL VEHICLE ADVISOR Performed at: [address] [place], [place] [address], [place] [id number] Wrapper Layer And Examiner Soft Work: Wilmer Godwin MD, Phone: [phone] Isma Monge MD LABORATORY Final Resu lt [facility] ([facility]) [address] [place], [place] [id number], * COLONOSCOPY SCREENING (05/04/2019 9:53 AM CDT) Isma Monge MD GI PROCEDURE ORD Final Res ult * ANTI HCV [33421.2] (03/09/2019 12:03 PM CDT) HEPATITIS C ANTIBODY Non-React jairo Non-React jairo 03/09/2019 5:20 PM CDT [facility] [employer] [facility] Comment:Antibodies to HCV no t detected; does not exclude the possibility of exposure to HCV. Blood BLOOD SPECIMEN / Unknown Venipuncture / Unknown 03/09/2019 12:03 PM CDT 03/09/2019 12:06 PM CDT Isma Monge MD SEND OUTS Final Resu lt [facility] [address] [place] [address], from Last 3 Months or Most Recently Relevant to Health Maintenance Insurance [facility] Care Teams Tip Banding Machine Operator Relationship Specialty Start Date End Date Isma Monge MD [address] [place] [address] PCP - General Family Practice 04/21/20
--- OUTSIDE RECORDS SUMMARY | 2025-05-27 01:35 | XMS_ITS | Clinical Summary ---
Author Organization [facility] Address [address] [place] [address] Care Team Providers Care Senior C Software Developer Name Role Phone Unassigned, Provider Primary Care Provider Unava ilable Source Comments You are receiving this document as you are listed as the primary care provider,follow-up provider, or the patient has been referred to you for consultation.This is in compliance with the Medicare and[facility] Incentive Program,which states Providers who transition their patient to another setting of careor provider of care or refers their patient to another provider of care shouldprovide summary care record for each transition of care or referral. EyeEm Allergies Active Allergy Reactions Criticality Noted Date [...] this topic Insurance BCBS OUT OF STATE [id number] [facility] ELLIOT CASTILLO [id number] Care Teams Senior C Software Developer Relationship Specialty Start Date End Date Unassigned, Provider [address] [place] [address] PCP - General 12/24/00
[2025-05-27] MEDS: ONDANSETRON 2 MG/ML inj 4 MG IVP ×2 (01:59→04:34)
[2025-05-27] MEDS: LACTATED RINGERS 1000 ML 1,000 ML 500 ML IV (02:00)
[2025-05-27 02:13] LABS: Lactate Sepsis w/Reflex* 1.3 mmol/L (0.5-1.9)
[2025-05-27 02:14] LABS: Hematocrit 40.7 % (37.0-53.0); Hemoglobin* 13.4 gm/dL (13.5-17.5); Immature Granulocytes Pct Auto 0.2 %; Mean Corpuscular HGB Conc 33 gm/dL (32-36); Mean Corpuscular Hemoglobin 30 pg (26-34); Mean Corpuscular Volume 90 fL (80-100); RDW Coefficient of Variation % 13.2 % (11.5-15.5); Red Blood Count 4.51 m/uL (4.30-5.90); White Blood Count* 12.83 K/uL (4.50-11.00)
[2025-05-27 02:16] LABS: Immature Granulocytes Abs Auto 0.00 K/uL (0.00-0.30); Lymphocytes Absolute Auto 4.30 K/uL (0.90-2.90); Slide Review Reflex No
[2025-05-27 02:29] LABS: Albumin* 4.5 g/dL (3.3-5.0); Chloride* 105 mmol/L (96-114); Potassium* 3.4 mmol/L (3.6-5.1); Sodium* 139 mmol/L (135-149)
--- NOTE | 2025-05-27 02:31 | ED.GENADULT ---
HPI - General Adult General Chief complaint: Abdominal Pain Stated complaint: gall bladder pain Time Seen by Provider: 05/27/25 01:44 Source: patient Mode of arrival: ambulatory Limitations: no limitations History of Present Illness HPI narrative: 6-year-old male presents the emergency department for evaluation of right upper quadrant abdominal pain, worsening in nature. Had similar symptoms 3 nights ago, was evaluated in ED, entire note will reviewed. CT was reassuring, he was referred for ultrasound in the daylight hours when ultrasound was available, this was performed Tuesday. The results unfortunately have not been reviewed yet by the ordering provider, as that provider has not yet been back to work over the weekend. I do have the ability to review this and does show cholecystitis. Patient reports that he had no symptoms until tonight at around 10:30 a.m. which is about 3 hours prior to arrival. Now he has nausea, no vomiting. Bowel movements have been normal. Pain is in the right upper quadrant, radiating now to the back which is new and wider area from the epigastrium down to the right flank area for the pain which had previously been fairly focal. He has had an extensive history with gallstones since 2020. He had managed with diet and lifestyle changes for several years but symptoms have been worsening as of recently. No fever. Does have a prior history of an uncomplicated appendectomy in his early teens, no hernia surgery or other intra-abdominal procedures but has had a vasectomy. Tried taking his Toradol and hydromorphone that he was previously given without any significant improvement in symptoms. Past medical history notable for hypertension, hyperlipidemia. Home meds are atorvastatin, hydrochlorothiazide, losartan. Nonsmoker. ROS is notable for the GI symptoms as above, otherwise denies times 12 systems. Related Data Home Medications ?Medication ?Instructions ?Recorded ?Confirmed atorvastatin 40 mg tablet 40 mg PO DAILY 05/23/25 05/27/25 hydrochlorothiazide 25 mg tablet 25 mg PO DAILY 05/23/25 05/27/25 losartan 100 mg tablet 100 mg PO DAILY 05/23/25 05/27/25 Allergies Allergy/AdvReac Type Severity Reaction Status Date / Time Penicillins Allergy Mild Rash Verified 05/27/25 01:44 [facility] Social History Smoking Status: Never smoker Do you use any of these nicotine containing products: None Second hand tobacco smoke exposure: No How often do you have a drink containing alcohol: monthly or less How often do you have six or more drinks on one occasion: Never AUDIT-C Alcohol total score: 1 Non-prescribed substance use: denies use service: No Exam Const: Vital Signs, click to edit/add: Vital Signs - 24 hr 05/27/25 01:41 05/27/25 02:06 05/27/25 02:23 Temperature 98.5 F Pulse Rate 53 L Pulse Rate [Right Pulse Oximeter] 63 Respiratory Rate 18 18 Blood Pressure 146/73 H Blood Pressure [Le ft Upper Arm] 142/84 H Pulse Oximetry 99 100 99 Oxygen Delivery Me thod Room Air 05/27/25 02:32 Temperature Pulse Rate 49 L Pulse Rate [Right Pulse Oximeter] Respiratory Rate 18 Blood Pressure 139/80 Blood Pressure [Le ft Upper Arm] Pulse Oximetry 98 Oxygen Delivery Me thod Documenting provider has reviewed patient's vital signs: yes Common normals: no apparent distress General appearance: well kempt Other: Clammy. Friendly and cooperative. Appears well-nourished well-hydrated HENMT: Common normals: normocephalic, moist oral mucous membranes and oropharynx normal Head and scalp: normocephalic Face and sinus: normal facial exam Mouth: oral and palatal mucosa normal Eye: Common normals: conjunctivae normal General eye: normal appearance of both eyes Conjunctiva: conjunctiva(e) normal Neck & C-Spine: Common normals: no lymphadenopathy General: normal visual inspection Resp: Common normals: normal respiratory effort, no use of accessory muscles and clear to auscultation bilaterally Effort & inspection: able to speak in complete sentences Auscultation: clear to auscultation bilaterally Cardio: Common normals: regular rate, regular rhythm, S1 normal heart sound, S2 normal heart sound and no murmurs Rate: regular rate Rhythm: regular rhythm Heart sounds: S1 normal and S2 normal GI: Common normals: Normal to inspection, nondistended, normoactive bowel sounds present, no hepatosplenomegaly and no masses Palpation: no hepatosplenomegaly Other: Normoactive bowel sounds. Right upper quadrant is tender with positive Womack sign. Mild rebound tenderness as well. : Common normals: no CVA tenderness Bladder/kidney exam: no CVA tenderness Back & Pelvis: Common normals: no CVA tenderness and thoracic and lumbar spine normal to inspection Extremity: Common normals: normal capillary refill General: normal exam except as noted Neuro: Common normals: moves all extremities Speech: speech normal Psych: Appearance: well kempt Attitude: engaged Attention/concentration: attention grossly intact Memory/cognition: memory grossly intact Insight: insight good Judgement: judgment good Skin: Common normals: no rashes or lesions noted General skin exam: no rashes or lesions noted Course Course ED Course: 6-year-old male presenting with worsening right upper quadrant pain with known history of gallstones and recent ultrasound demonstrating cholecystitis, results have not yet been provided to the ordering provider. Counseled patient that he is most likely experiencing worsening of the cholecystitis. Will obtain basic labs including lactate, CBC, comprehensive metabolic panel, CRP. Will look for pancreatitis with lipase as he is now having pain radiating to the back a little bit as well. Will place peripheral IV, give 1 L of LR, 4 morphine, 0.5 mg of Dilaudid while we await labs. I do not think there is value in repeating the CT unless is lipase is really elevated. Will consult surgery team once lab results are available. Reevaluation(s) Time of Reevaluation #1: 03:02 Reevaluation #1: Counseled patient findings. Mild leukocytosis but otherwise labs are reassuring. No signs of pancreatitis, no biliary obstruction. I do not recommend that we repeat CT or ultrasound imaging tonight with these findings. I discussed with the surgeon on-call, she is on-call until 7:00 a.m. but is than leaving for vacation, she will contact the incoming surgeon. Zosyn was recommended, but I notice that he has a penicillin allergy, will give ertapenem instead. Patient has been accepted for admission by Dr. Dyer, hospitalist team. Vital Signs Vital signs: Initial Vital Signs Temperature 98.5 F 05/27/25 01:41 Temperature Source Temporal Artery Scan 05/27/25 01:41 Pulse Rate 63 05/27/25 01:41 Respiratory Rate 18 05/27/25 01:41 Blood Pressure 142/84 H 05/27/25 01:41 Blood Pressure Mean 103 05/27/25 01:41 Blood Pressure Position Sitting 05/27/25 01:41 Pulse Oximetry 99 05/27/25 01:41 Oxygen Delivery Method Room Air 05/27/25 01:41 Vital Signs Temperature 98.5 F 05/27/25 01:41 Pulse Rate 63 05/27/25 01:41 Respiratory Rate 18 05/27/25 01:41 Blood Pressure 142/84 H 05/27/25 01:41 Pulse Oximetry 99 05/27/25 01:41 Oxygen Delivery Method Room Air 05/27/25 01:41 Temperature 98.5 F 05/27/25 01:41 Pulse Rate 49 L 05/27/25 02:32 Respiratory Rate 18 05/27/25 02:32 Blood Pressure 139/80 05/27/25 02:32 Pulse Oximetry 98 05/27/25 02:32 Oxygen Delivery Method Room Air 05/27/25 01:41 Medications Administered Medications: Generic Name Dose Route Start Last Admin Trade Name Freq PRN Reason Stop Dose Admin Hydromorphone HCl 0.2 - 0.5 mg 05/27/25 01:57 05/27/25 02:45 Hydromorphone 0.5 Mg/0.5 Ml Inj IVP 0.5 mg Q1H PRN Administration Pain Hydroxyzine Pamoate 25 mg 05/27/25 03:02 05/27/25 03:05 Hydroxyzine Pamoate 25 Mg Capsule PO 05/27/25 03:03 25 mg ONCE ONE Administration Lactated Ringer's 1,000 mls @ 500 mls/hr 05/27/25 01:57 05/27/25 03:03 Lactated Ringers 1000 Ml IV 05/27/25 03:56 Infused .Q2H PIA Infusion Ertapenem 1 gm/ Sodium 100 mls @ 200 mls/hr 05/27/25 02:51 05/27/25 02:59 Chloride IVPB 05/27/25 02:52 200 mls/hr ONCE ONE Administration Discontinued Medications Generic Name Dose Route Start Last Admin Trade Name Freq PRN Reason Stop Dose Admin Hydromorphone HCl 0.5 mg 05/27/25 01:57 05/27/25 02:00 Hydromorphone 0.5 Mg/0.5 Ml Inj IVP 05/27/25 01:58 0.5 mg ONCE ONE Administration Ondansetron HCl 4 mg 05/27/25 01:57 05/27/25 01:59 Ondansetron 2 Mg/Ml Inj IVP 05/27/25 01:58 4 mg ONCE ONE Administration Medical Decision Making Lab Data Lab results reviewed: Yes I reviewed the patient's lab results Lab results narrative: Mild leukocytosis but no elevated lipase, elevated liver enzymes or signs of obstruction. Reassuring. Labs: Lab Results 05/27/25 Range/Units 02:10 WBC 12.83 H (4.50-11.00) K/uL RBC 4.51 (4.30-5.90) m/uL Hgb 13.4 L (13.5-17.5) gm/dL Hct 40.7 (37.0-53.0) % MCV 90 (80-100) fL MCH 30 (26-34) pg MCHC 33 (32-36) gm/dL RDW Coeff of Stevan 13.2 (11.5-15.5) % Plt Count 304 (140-440) K/uL Neut % (Auto) 52.9 (42.0-72.0) % Lymph % (Auto) 33.3 (20-44) % [place] % (Auto) 9.6 (0.0-11.0) % Eos % (Auto) 3.7 (0.0-7.0) % Baso % (Auto) 0.3 (0.0-3.0) % Neut # (Auto) 6.80 (1.7-7.0) K/uL Lymph # (Auto) 4.30 H (0.90-2.90) K/uL Y[place] # (Auto) 1.20 H (0.00-0.90) K/UL Eos # (Auto) 0.50 (0.00-0.50) K/uL Baso # (Auto) 0.00 (0.00-0.30) K/uL Abs Immat Gran (auto) 0.00 (0.00-0.30) K/uL Imm/Tot Granulo (auto) 0.2 % Sodium 139 (135-149) mmol/L Potassium 3.4 L (3.6-5.1) mmol/L Chloride 105 (96-114) mmol/L Carbon Dioxide 24 (20-32) mmol/L Anion Gap 10 (7-15) mEq/L BUN 30 (7-30) mg/dL Creatinine 1.0 (0.5-1.5) mg/dL Estimated Creat Clear 93.89 Estimated GFR 86 ml/min Glucose 117 H (60-115) mg/dL Lactate 1.3 (0.5-1.9) mmol/L Calcium 10.1 (8.4-10.6) mg/dL Total Bilirubin 0.5 (0.1-1.5) mg/dL AST 29 (12-35) U/L ALT 20 (4-50) U/L Alkaline Phosphatase 84 (40-150) U/L C-Reactive Protein 0.5 (0.5-1.0) mg/dL Total Protein 8.1 (6.0-8.3) g/dL Albumin 4.5 (3.3-5.0) g/dL Lipase 100 (23-300) U/L Imaging Data Right upper quadrant ultrasound: Attestation: I have reviewed the pertinent imaging results. Radiologist's impression: Note that ultrasound was taken 05/24, not today FINDINGS: Echogenic stones within the gallbladder neck. Gallbladder wall is thickened measuring 7 millimeters. No pericholecystic fluid. Common bile duct measures 6 millimeters. Positive sonographic Womack`s sign. IMPRESSION: Gallstones in the gallbladder neck with positive sonographic Womack`s sign and gallbladder wall thickening suggesting cholecystitis. Surgical consultation recommended. Dictated by Darrin Murguia MD @ 05/24/2025 11:02:11 AM (Electronically Signed) ECG Data Attestation: I personally reviewed and interpreted this ECG as follows: Prior ECG tracings: not available for review Interpretation: Sinus rhythm with a rate of 47, mild bradycardia. No significant ST or T-wave abnormalities. Normal intervals and axis. Other than the mild bradycardia, normal EKG. Patient reports this is chronic for him. Discharge Plan Discharge Clinical Impression: Acute cholecystitis Patient Disposition: XFER to OR Condition: Stable Instructions: Cholecystitis (ED) Follow Up/Referrals: Isma Monge MD [Primary Care Provider, Family Practice]
[2025-05-27 02:32] LABS: Alanine Aminotransferase* 20 U/L (4-50); Alkaline Phosphatase* 84 U/L (40-150); Anion Gap 10 mEq/L (7-15); Aspartate Amino Transferase* 29 U/L (12-35); Bilirubin Total* 0.5 mg/dL (0.1-1.5); Blood Urea Nitrogen* 30 mg/dL (7-30); Carbon Dioxide* 24 mmol/L (20-32); Creatinine* 1.0 mg/dL (0.5-1.5); Est. Creatinine Clearance* 93.89; Estimated Glomerular Filt Rate 86 ml/min; Total Protein* 8.1 g/dL (6.0-8.3)
[2025-05-27 02:33] LABS: Calcium* 10.1 mg/dL (8.4-10.6); Glucose* 117 mg/dL (60-115)
[2025-05-27] MEDS: ERTAPENEM 1 GM in 0.9 % SODIUM CHLORIDE Mini-bag 100 ML IVPB (02:59)
--- NOTE | 2025-05-27 04:20 | W.PM.THH&P_ITS ---
Telehealth- H&P: HPI History of Present Illness Date Seen: 05/27/25 Chief complaint: gall bladder pain Narrative: Ranjit Knight is seen as an Interactive Telehealth visit. This is a 60-year-old male with a past medical history significant for hypertension hyperlipidemia who presents to the hospital with abdominal pain. This patient presented on May 23, 2025 with abdominal pain. Initially he underwent a CT scan of the abdomen which did not show any gross abnormalities. Although it did show cholelithiasis, I did not show any significant cholecystitis. He then presented back to the hospital with symptoms of abdominal pain. He underwent right upper quadrant ultrasound which eventually read as positive Womack sign, thickened gallbladder and concerning for cholecystitis. He was planning to have a surgical evaluation in the outpatient setting, scheduled for this week Tuesday but his pain became severe and he was unable to tolerate it. He then came to the emergency room. In the ER, he was noted to have a mildly elevated white count, normal CRP, normal AST ALT and bi lirubin. He appeared to be in significant discomfort. Given the abnormal ultrasound and his symptoms, ER physician contacted surgery on-call who plans to assess him for possible OR sometime today. Patient was administered a dose of ertapenem. Review of Systems Status of ROS: Reports: 10 or more systems reviewed and unremarkable except as noted in History and below Const: Denies: fever, chills or fatigue Cardio: Denies: chest pain or shortness of breath with exertion Resp: Denies: shortness of breath GI: Reports: abdominal pain and nausea : Denies: difficulty urinating Musculo: Denies: back pain Endo: Denies: fatigue PFSH PFSH Social History Smoking Status: Never smoker Do you use any of these nicotine containing products: None Second hand tobacco smoke exposure: No How often do you have a drink containing alcohol: monthly or less How often do you have six or more drinks on one occasion: Never AUDIT-C Alcohol total score: 1 Non-prescribed substance use: denies use service: No Meds Home Medications and Allergies Home Medications ?Medication ?Instructions ?Recorded ?Confirmed ?Type atorvastatin 40 mg tablet 40 mg PO DAILY 05/23/2505/14 History hydrochlorothiazide 25 mg tablet 25 mg PO DAILY 05/27/25 History losartan 100 mg tablet 100 mg PO DAILY 05/23/25 History Allergies Allergy/AdvReac Type Severity Reaction Status Date / Time Penicillins Allergy Mild Rash Verified 05/27/25 01:44 Exam Narrative Exam Narrative: Physical Exam GENERAL: ?vital signs reviewed, well developed and nourished, patient appears to be in some distress - (describes pain 4/10, pressure in RUQ) NECK: Supple without lymphadenopathy or thyromegaly according to nursing staff examination observation HEART: Regular rate and rhythm without any rubs, murmurs, or gallops. LUNGS: Clear to auscultation bilaterally with good air movement throughout ABDOMEN: Observation from nurse assisted exam, abdomen appears soft, no sig tenderness in LLQ, LUQ and RLQ. No evidence of gaurding or rebound tenderness. Did not examine RUQ given discomfort, and positive US exam. EXTREMITIES: No focal strength deficit is observed. SKIN:? Observed warm and dry with color normal Const Vital Signs, click to edit/add: Vital Signs - 24 hr 05/27/25 01:41 05/27/25 02:06 05/27/25 02:23 Temperature 98.5 F Pulse Rate 53 L Pulse Rate [Right Pulse Oximeter] 63 Respiratory Rate 18 18 Blood Pressure 146/73 H Blood Pressure [Left Upper Arm] 142/84 H Pulse Oximetry 99 100 99 Oxygen Delivery Method Room Air 05/27/25 02:32 05/27/25 03:00 05/27/25 03:01 Temperature Pulse Rate 49 L 45 L 48 L Pulse Rate [Right Pulse Oximeter] Respiratory Rate 18 16 Blood Pressure 139/80 145/78 H Blood Pressure [Left Upper Arm] Pulse Oximetry 98 100 100 Oxygen Delivery Method Hospitalist - H&P: Result Labs Labs: Short CBC 05/27/25 Range/Units 02:10 WBC 12.83 H (4.50-11.00) K/uL Hgb 13.4 L (13.5-17.5) gm/dL Hct 40.7 (37.0-53.0) % Plt Count 304 (140-440) K/uL BMP 05/27/25 02:10 Sodium 139 Potassium 3.4 L Chloride 105 Carbon Dioxide 24 BUN 30 Creatinine 1.0 Glucose 117 H Calcium 10.1 Liver Function 05/27/25 Range/Units 02:10 Total Bilirubin 0.5 (0.1-1.5) mg/dL AST 29 (12-35) U/L ALT 20 (4-50) U/L Alkaline Phosphatase 84 (40-150) U/L Albumin 4.5 (3.3-5.0) g/dL Assessment and Plan Assessment and plan (1) Acute cholecystitis: Status: Acute (2) Cholelithiasis: Status: Acute Plan This patient is diagnosed with acute cholecystitis based on clinical suspicion. He has known cholelithiasis in the gallbladder. Most recent ultrasound showed a possible gallstone in the neck of the bladder. Fortunately his bilirubin is stable, AST ALT is stable. His CRP is also stable. My suspicion is much of his symptoms is related to an obstructive stone which is causing him pain. He was given a dose of ertapenem in the ER. I will also provide him pain medication. He has 0.5 mg Dilaudid every 2 hours as needed as well as as needed Ativan. He appears to be in significant discomfort. I was worried that he was having an acute abdominal issue. However our exam was completed which appeared relatively benign: No rebound, no guarding. He was also afebrile. His heart rate was 48. His blood pressure was 140/78. I also discussed this case with the ER provider who agreed. Patient's labs also appear to be relatively stable. I will defer to the surgeons in the morning who have been already consulted. Telehealth Visit: Todays History and Physical is via interactive telehealth by Dr Sid Dyer MD The Patient is located [facility]: Physician is located at [facility]. Nursing staff assisted in the patient's exam. The visit being done today meets criteria for a telehealth visit and the patient or patient's parent/guardian is aware the visit is a telehealth visit. Camera Start time 330 Camera End time 400 Telehealth: Statement Statement Telehealth Visit: Today's History and Physical is provided via interactive telehealth by Sid Dyer MD.? Patient is located at [facility].? Provider is located at [facility].? Nursing staff assisted with the patient's exam. The visit being done today meets criteria for a telehealth visit and the patient or patient?s parent/guardian is aware the visit is a telehealth visit.
[2025-05-27] MEDS: ENOXAPARIN 30 MG/0.3ML INJ 40 MG SUBCUT (04:50)
[2025-05-27] MEDS: SODIUM CHLORIDE 0.9 % (FLUSH) 10 ML SYRINGE 5 ML IVF ×3 (04:51→11:52)
--- NOTE | 2025-05-27 05:58 | PC.NURSE ---
End of shift report: Pt got admitted at 0314. Rates RUQ abdominal pain a 7-01/21, prn pain meds offered and given with relief. Pt was nauseous, Zofran and Ativan given with relief. Pt stated he had an episode of emesis.?Afebrile. On RA. Tolerating NPO diet. Pt is ind in room, is at the bedside, call light within reach.?
--- NOTE | 2025-05-27 09:52 | PM.GSCN ---
History of Present Illness Consult details Date Seen: 05/27/25 Consult date: 05/27/25 Narrative: Patient is a 60-year-old male who presented to the emergency department with epigastric abdominal pain. The pain started around 10:00 a.m. last night. It felt like pressure and squeezing sensation just below his sternum. There was radiation of pain in a band around his abdomen into the back. He was seen in the emergency department on for similar pain, which was attributed to gallbladder disease. During that visit the pain subsided and he was prescribed Toradol and [place]. He took 1 of each of these pain medications last night, but it did not improve the pain. He also reported some associated nausea, no vomiting. He last ate last night. He has had episodes of pain similar to this before, but in those situations the pain would completely resolve and he would feel normal. His surgical history is positive for an open appendectomy. He works as a [employer]RI[employer]OR [employer] of a company. He does rowing machine for exercise 5+ times per week. Review of Systems Status of ROS: Reports: 10 or more systems reviewed and unremarkable except as noted in History and below [facility] Social History What is your current living situation?: I presently have a place to live Problems where you live: no known problems Problems where you live details: N/A In the past 12 months, utilities in danger of being shut off: no In past 12 months, lack of transportation kept you from medical appts, meetings, work, or getting things needed for daily living: no In the past 12 mos, have been you worried that your food would run out before you had money to buy more?: never true In the past 12 mos, the food you bought just didn't last and you didn't have money to buy more?: never true Highest level of school completed/degree received: Master's degree Smoking Status: Never smoker Do you use any of these nicotine containing products: None Second hand tobacco smoke exposure: No How often do you have a drink containing alcohol: monthly or less How often do you have six or more drinks on one occasion: Never AUDIT-C Alcohol total score: 1 Non-prescribed substance use: denies use How often does anyone, including family, friends and others, physically hurt you: never How often does anyone, including family, friends and others, insult or talk down to you: never How often does anyone, including family, friends and others, threaten you with harm: never How often does anyone, including family, friends and others, scream or curse at you: never service: No Meds Home Medications and Allergies Home Medications ?Medication ?Instructions ?Recorded ?Confirmed ?Type atorvastatin 40 mg tablet 40 mg PO DAILY 05/23/25 05/27/25 History hydrochlorothiazide 25 mg tablet 25 mg PO DAILY 05/23/25 05/27/25 History losartan 100 mg tablet 100 mg PO DAILY 05/23/25 05/27/25 History Allergies Allergy/AdvReac Type Severity Reaction Status Date / Time Penicillins Allergy Mild Rash Verified 05/27/25 01:44 Exam Narrative: Exam Narrative: General: Alert and oriented, no acute distress Respiratory: Equal breath rise bilaterally, maintained on room air CV: Well perfused Abdomen: Soft, epigastric tenderness, positive [place]. Some guarding with deep palpation, no rebound. Const: Vital Signs, click to edit/add: Vital Signs - 24 hr 05/27/25 01:41 05/27/25 02:06 05/27/25 02:23 Temperature 98.5 F Pulse Rate 53 L Pulse Rate [Left P ulse Oximeter] Pulse Rate [Right Pulse Oximeter] 63 Respiratory Rate 18 18 Blood Pressure 146/73 H Blood Pressure [Le ft Upper Arm] 142/84 H Blood Pressure [Ri ght Arm] Pulse Oximetry 99 100 99 Oxygen Delivery Me thod Room Air 05/27/25 02:32 05/27/25 03:00 05/27/25 03:01 Temperature Pulse Rate 49 L 45 L 48 L Pulse Rate [Left P ulse Oximeter] Pulse Rate [Right Pulse Oximeter] Respiratory Rate 18 16 Blood Pressure 139/80 145/78 H Blood Pressure [Le ft Upper Arm] Blood Pressure [Ri ght Arm] Pulse Oximetry 98 100 100 Oxygen Delivery Me thod 05/27/25 03:14 05/27/25 03:14 Temperature 98.5 F Pulse Rate Pulse Rate [Left P ulse Oximeter] 48 L Pulse Rate [Right Pulse Oximeter] Respiratory Rate 18 18 Blood Pressure Blood Pressure [Le ft Upper Arm] Blood Pressure [Ri ght Arm] 140/79 H Pulse Oximetry 100 100 Oxygen Delivery Me thod Room Air Room Air Results Labs Labs: Abnormal lab results 05/27/25 Range/Units 02:10 WBC 12.83 H (4.50-11.00) K/uL Hgb 13.4 L (13.5-17.5) gm/dL Lymph # (Auto) 4.30 H (0.90-2.90) K/uL [place] # (Auto) 1.20 H (0.00-0.90) K/UL Potassium 3.4 L (3.6-5.1) mmol/L Glucose 117 H (60-115) mg/dL Diabetes panel 05/27/25 Range/Units 02:10 Sodium 139 (135-149) mmol/L Potassium 3.4 L (3.6-5.1) mmol/L Chloride 105 (96-114) mmol/L Carbon Dioxide 24 (20-32) mmol/L BUN 30 (7-30) mg/dL Creatinine 1.0 (0.5-1.5) mg/dL Glucose 117 H (60-115) mg/dL Calcium 10.1 (8.4-10.6) mg/dL AST 29 (12-35) U/L ALT 20 (4-50) U/L Alkaline Phosphatase 84 (40-150) U/L Total Protein 8.1 (6.0-8.3) g/dL Albumin 4.5 (3.3-5.0) g/dL Calcium panel 05/27/25 Range/Units 02:10 Calcium 10.1 (8.4-10.6) mg/dL Albumin 4.5 (3.3-5.0) g/dL Pituitary panel 05/27/25 Range/Units 02:10 Sodium 139 (135-149) mmol/L Potassium 3.4 L (3.6-5.1) mmol/L Chloride 105 (96-114) mmol/L Carbon Dioxide 24 (20-32) mmol/L BUN 30 (7-30) mg/dL Creatinine 1.0 (0.5-1.5) mg/dL Glucose 117 H (60-115) mg/dL Calcium 10.1 (8.4-10.6) mg/dL Adrenal panel 05/27/25 Range/Units 02:10 Sodium 139 (135-149) mmol/L Potassium 3.4 L (3.6-5.1) mmol/L Chloride 105 (96-114) mmol/L Carbon Dioxide 24 (20-32) mmol/L BUN 30 (7-30) mg/dL Creatinine 1.0 (0.5-1.5) mg/dL Glucose 117 H (60-115) mg/dL Calcium 10.1 (8.4-10.6) mg/dL Total Bilirubin 0.5 (0.1-1.5) mg/dL AST 29 (12-35) U/L ALT 20 (4-50) U/L Alkaline Phosphatase 84 (40-150) U/L Total Protein 8.1 (6.0-8.3) g/dL Albumin 4.5 (3.3-5.0) g/dL All other labs normal. Imaging Abdomen CT scan report/results: report reviewed and image reviewed Abdominal ultrasound report/results: report reviewed and image reviewed Progress Note:A&P Assessment and plan (1) Acute cholecystitis: Status: Acute Assessment and Plan: Patient has a clinical history and workup consistent with acute cholecystitis. Of note imaging was performed 05/23 and 05/24, during his 1st ER visit this week. Symptoms and findings are consistent with acute cholecystitis. Low concern for choledocholithiasis given normal LFTs. No additional imaging needed at this time preoperatively. I had a detailed conversation with the patient regarding the diagnosis of acute cholecystitis. We discussed the treatment options including observation with diet modification and laparoscopic cholecystectomy. We discussed the risks of surgery (including but not limited to) the risks of bleeding, infection, injury to other structures in the abdomen including bile duct injury, bile leak and conversion to an open operation. We discussed the possibility that the patient's pain not improve with surgery. We discussed the possibility of permanent post-operative diarrhea that may require medical management. Additionally, the conceivably of complications requiring additional surgery or further hospitalization were also discussed including the risks of [place], respiratory failure, stroke and blood clots. The patient voiced an understanding of our conversation, had the opportunity to ask questions, agreed to accept the risks of surgery and asked that we proceed with surgery. -OR for laparoscopic cholecystectomy -NPO -patient received ertapenem in the emergency department, no additional antibiotics needed at this time -anticipate discharge in same-day surgery postoperatively verses recovery in [facility] overnight
[2025-05-27] MEDS: LACTATED RINGERS 1000 ML 1,000 ML 125 ML IV (13:00)
--- NOTE | 2025-05-27 13:56 | PC.NURSE ---
Nursing discharge note: Pt has been A&O, afebrile and VSS on day of discharge. Reported RUQ pain at 2/10 in which he requested IV Dilaudid for at 1210. PRN IV Ativan given prior to Dilaudid for nausea relief. Pt has been NPO since 0000 for planned lap elisa. He was brought down to surgery at 1245 and will discharge home from PACU.
--- NOTE | 2025-05-27 14:22 | P.GSOP_ITS ---
Operative Note Date of procedure: 05/27/25 Pre-op diagnosis: Acute cholecystitis Post-op diagnosis: Same Type of Procedure: Laparoscopic cholecystectomy Indications: Patient is a 60-year-old male who presented to the emergency department with clinical workup and symptoms consistent with acute cholecystitis. Risks and benefits of operative intervention were discussed at length with the patient. Risks included but was not limited to: Bleeding, infection, risk of damage to surrounding structures, possible need for additional procedures, possible need to convert to an open operation and postoperative complications such as pneumonia, pulmonary emboli or MD. All questions and concerns were addressed with the patient agreeing to proceed. Procedure Description: After discussing the risks and benefits of the procedure, the patient signed informed consent.? The operative site was marked and the patient was brought to the operating room and placed on the operating table in supine position.? Care was taken to pad the patient's pressure points.?? The patient was then intubated by anesthesia.?? The operative site was then prepped and draped in the usual sterile fashion.? A time-out was then performed. Entrance to the abdomen was gained via a 5 mm Visiport in the left upper quadran t. The abdomen was insufflated and briefly surveyed for signs of injury. There was none. 11 mm umbilical port was placed as well as 2 working ports along the right costal margin. Patient was then placed in reverse Trendelenburg position with the right side up. The gallbladder fundus was distended. The gallbladder was then decompressed with a laparoscopic needle, removing 60 mL of dark bilious fluid. This allowed the fundus to be grasped and retracted cephalad. The infundibulum was grasped. A combination of hook cautery and blunt dissection was used to carefully dissect out the cystic duct and artery. A node of [place] was identified overlying the artery. Two clips were placed on the vascular pedicle of the node proximally and 1 clip distally before it was transected. This allowed further dissection until only the artery and duct were seen entering the gallbladder without any intervening structures. The gallbladder was dissected off the cystic plate to achieve the critical view. Once this was achieved the cystic duct and artery were each clipped with 2 clips proximally and 1 clip distally and transected with the scissors. The gallbladder was then taken off of the liver bed and removed from the abdomen using an Endo-Catch bag. The gallbladder bed was surveyed for hemostasis. A small amount of bile which had spilled was suctioned from the abdomen. The umbilical port fascia was closed with 0 Vicryl via the Rell-Juliocesar. All of the remaining ports were then removed under direct vision. Additional local anesthetic was injected into each port site. The skin was closed with absorbable subcuticular suture. Instrument sponge and needle counts were correct at the end of the case. The patient was then woken and transferred to the PACU in stable condition. Findings: Distended and edematous gallbladder, consistent with acute cholecystitis. Anesthesia: GETA Surgeon: Keely Lambert MD Estimated blood loss (mL): 10 Specimen: Gallbladder Condition: stable Disposition: PACU
--- NOTE | 2025-05-27 14:30 | P.ANES_ITS ---
Anesthesia Charges Start Date/Time Anesthesia Start Date: 05/27/25 Anesthesia Start Time: 12:55 Stop Date/Time Anesthesia Stop Date: 05/27/25 Anesthesia Stop Time: 14:29 Coding CPT Codes CPT Codes: ANESTH SURG UPPER ABDOMEN - 79878 ([id number]) QK - ELECTRONIC TRANSACTION IMPLEMENTER 2-4 CNCRNT ANES PROC, QX - ENVIRONMENTAL EDUCATION SPECIALIST SVC W/ MD MED DIRECTION, P2 - PATIENT W/MILD SYST DISEASE
--- NOTE | 2025-05-27 14:30 | W.ANESCHARGE ---
Anesthesia Charges Start Date/Time Anesthesia Start Date: 05/27/25 Anesthesia Start Time: 12:55 Stop Date/Time Anesthesia Stop Date: 05/27/25 Anesthesia Stop Time: 14:29 Coding CPT Codes CPT Codes: ANESTH SURG UPPER ABDOMEN - 01905 ([id number]) QK - [place] 2-4 CNCRNT ANES PROC, QX - FLAKE CUTTER OPERATOR SVC W/ MD MED DIRECTION, P2 - PATIENT W/MILD SYST DISEASE
--- NOTE | 2025-05-27 14:41 | P.ANES_ITS ---
Anesthesia Charges Start Date/Time Anesthesia Start Date: 05/27/25 Anesthesia Start Time: 12:55 Stop Date/Time Anesthesia Stop Date: 05/27/25 Anesthesia Stop Time: 14:29 Coding CPT Codes CPT Codes: ANESTH SURG UPPER ABDOMEN - 38334 ([id number]) P2 - PATIENT W/MILD SYST DISEASE, QX - POINT OF SALE ASSOCIATE SVC W/ MD MED DIRECTION, QK - AUTO PARKER 2-4 CNCRNT ANES PROC
--- NOTE | 2025-05-27 14:41 | W.ANESCHARGE ---
Anesthesia Charges Start Date/Time Anesthesia Start Date: 05/27/25 Anesthesia Start Time: 12:55 Stop Date/Time Anesthesia Stop Date: 05/27/25 Anesthesia Stop Time: 14:29 Coding CPT Codes CPT Codes: ANESTH SURG UPPER ABDOMEN - 21950 ([id number]) P2 - PATIENT W/MILD SYST DISEASE, QX - PLUG CUTTER SVC W/ MD MED DIRECTION, QK - ASBESTOS SHINGLE INSPECTOR 2-4 CNCRNT ANES PROC
[2025-05-27] MEDS: HYDROCODONE-ACETAMIN 5-325 MG 1 TAB PO (16:03)
== END 2025-05-27 16:19 | disposition home or self-care (01) ==
LOC: ED 03:06 → MEDSURG 07:32 → SS 11:19 → MEDSURG 11:20 → SS 16:15
PROVIDERS: Surgery; Emergency Provider Family Medicine; PCP Surgery; Visit Provider Surgery
PROC: 0FT44ZZ Resection of Gallbladder, Percutaneous Endoscopic Approach (ICD-10-PCS; CPT 47562; principal; 2025-05-27 13:30)
DX: K80.00 Calculus of gallbladder with acute cholecystitis without obstruction (principal); R10.11 Right upper quadrant pain; R00.1 Bradycardia, unspecified; I10 Essential (primary) hypertension; E78.5 Hyperlipidemia, unspecified
CPT/HCPCS: 47562; 00790; 36415; 80053; 83605; 83690; 85025; 86140; 93005; 94761; 99284; 99285; A9270; G0378; J0330; J1100; J1171; J1335; J1630; J1650; J1885; J2060; J2250; J2405; J2704; J3010; J3490; J7120